=== PATIENT | female | born 1980 | race Caucasian/White ===

== ENCOUNTER 2020-08-15 12:37 | Emergency (ER) | payer OTHER, SELFPAY ==
[2020-08-15 12:37] VITALS: BP 165/106; PULSE 83; RESP 16; TEMP 36.4; O2SAT 100; BMI 22.1
--- NOTE | 2020-08-15 12:50 | CT_ITS ---
STUDY: CT ABDOMEN AND PELVIS WITH CONTRAST REASON FOR EXAM: Female, 40 years old. LLQ pain RADIATION DOSAGE (If Supplied By Facility): CTDIvol = ( 12.31 ) mGy, DLP = ( 569.20 ) mGycm TECHNIQUE: Transaxial images were obtained from the dome of the diaphragm to the symphysis pubis without oral contrast. IV 100mL Isovue-370 was administered. Sagittal and coronal images were reconstructed. Individualized dose optimization techniques were used for this CT. COMPARISON: None. FINDINGS: The visualized lung bases are unremarkable. The visualized portions of the heart are within normal limits. Normal liver. The gallbladder is contracted. Normal spleen. Normal pancreas. Normal bilateral adrenal glands. Normal right kidney. Normal left kidney. There is a small hiatal hernia. Normal small intestine. Normal colon. The appendix is visualized and appears normal. There is scattered atherosclerotic calcification of the abdominal aorta, without a demonstrated aneurysm. Normal inferior vena cava. There is borderline retroperitoneal lymphadenopathy with enlarged nodes no greater than 10mm in the short axis diameter. Normal urinary bladder. There is a 6.9 cm x 5.7 cm cystic mass in the left adnexa. There is also evidence of a 3 cm x 2.8 cm complex cystic mass in the right adnexa. Correlation with ultrasound is recommended. Normal abdominal wall. Levoscoliosis. CT/Abdomen/Pelvis W IV Cont ONLY IMPRESSION: Bilateral adnexal masses more prominent on the left side. Correlation with a pelvic ultrasound is recommended. Electronically Signed: Cody Barajas MD at 14:44 EDT , Service support ,
--- NOTE | 2020-08-15 12:56 | ED.VIS.GI ---
HPI HPI - GI History of Present Illness Chief Complaint: Abd Pain Informant: patient Narrative Narrative: Patient has left lower quadrant abdominal pain. She has had this for 5 weeks. She describes sharp pain in the left lower quadrant that does not radiate. The pain is not in her back. She denies nausea, vomiting or diarrhea. She has been taking ibuprofen which has been helping, but she states she has been taking it daily to help with the discomfort. She has no history of abdominal surgeries. She denies any dysuria or hematuria. She states she has had no irregular vaginal or heavy vaginal bleeding except for when the pain started 5 weeks ago she did have a lot of bleeding. PFSH PFSH Home Medications naproxen 500 mg PO BID PRN #20 tab 08/15/20 [Rx Last Taken Unknown] Allergy/AdvReac Type Severity Reaction Status Date / Time Penicillins [PCN] Allergy Severe NEEDS Verified 08/15/20 12:40 FOLLOW-UP Social History Smoking Status: Current every day smoker ROS ROS ED Constitutional Constitutional ED: Denies chills or fever(s) Eyes Eyes: Denies blurry vision, change in vision or diplopia ENT ENT ED: Denies ear pain, rhinorrhea or sore throat Cardiovascular Cardiovascular: Denies chest pain or palpitations Respiratory/Chest Respiratory/Chest: Denies cough, dyspnea or sputum Gastrointestinal Gastrointestinal: Reports abdominal pain Genitourinary Genitourinary ED: Denies dysuria, hematuria or urinary frequency Musculoskeletal Musculoskeletal: Denies back pain or neck pain Integumentary Denies change in pigmentation or rash Neurologic Neurologic: Denies headache(s), numbness or weakness Psychiatric Psychiatric: Denies anxiety or depression Endocrine Endocrinology: Denies polydipsia or polyuria EXAM Physical Exam Const Vital Signs: 08/15/20 12:37 08/15/20 13:13 08/15/20 15:26 Temperature 97.6 F L 97.6 F L Temperature Source Temporal Temporal Pulse Rate 83 83 103 H Respiratory Rate 16 16 Blood Pressure 165/106 H 165/106 H Blood Pressure Mean 125 125 Pulse Ox 100 100 98 Oxygen Delivery Method Room Air Room Air Room Air Positive well nourished and well developed General Appearance ED: well developed and NAD HEENT Reports moist mucous membranes normocephalic and atraumatic; Negative for tenderness Eyes PERRL and EOMs intact bilaterally Neck supple and no JVD Chest Wall Chest: Negative for tenderness Resp normal respiratory effort and clear to auscultation bilaterally Effort and Inspection: Negative for respiratory distress Cardio regular rate, regular rhythm and no murmurs Rate: regular rate Rhythm: regular rhythm GI soft to palpation and non-distended Palpation: soft and tender LLQ; Negative for guarding or rebound tenderness present Back/Spine no CVA tenderness and no thoracic nor lumbar tenderness Cervical Spine: Negative for cervical spine tenderness Extremity normal to inspection and full ROM General Extremety ED: Negative for tenderness Neuro oriented x3, CN's II-XII intact bilaterally and no sensory deficits noted Sensorium / Orientation: awake and alert Motor Exam: strength 5/5 throughout Psych mental status grossly normal Skin no rashes or lesions noted MDM MDM MDM Narrative Medical decision making narrative: Patient was given morphine and Zofran. Laboratory studies are fairly unremarkable except for an AST of 13. Urinalysis and test are negative. CAT scan of the abdomen pelvis shows bilateral adnexal masses. Radiologist recommended ultrasound follow-up. The ultrasound shows bilateral ovarian cysts with findings of an endometrioma versus hemorrhagic cyst. Recommended follow-up in about 6 weeks for this. 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 At this point feel she be discharged home with analgesia. Patient will be given Dr. Mela Fatima for follow-up. Lab Data Labs: Laboratory Results - last 24 hr 08/15/20 08/15/20 08/15/20 13:05 13:05 13:56 WBC 8.8 RBC 4.21 Hgb 13.2 Hct 39.9 MCV 94.8 MCH 31.4 MCHC 33.1 RDW Std Deviation 44.9 H RDW Coeff of Carlos 12.9 Plt Count 295 MPV 10.1 Immature Gran % (Auto) 0.300 Neut % (Auto) 59.6 Lymph % (Auto) 29.8 [place] % (Auto) 7.6 Eos % (Auto) 2.4 Baso % (Auto) 0.3 Absolute Neuts (auto) 5.2 Absolute Lymphs (auto) 2.62 Nucleated RBC % 0 Sodium 137 Potassium 3.7 Chloride 103 Carbon Dioxide 31.0 Anion Gap 3 L BUN 10 Creatinine 0.65 Estim Creat Clear Calc 121.44 Est GFR (MDRD) Af Amer 131 Est GFR (MDRD) Non-Af 108 BUN/Creatinine Ratio 15.5 Glucose 101 Calcium 8.6 Total Bilirubin 0.60 AST 13 L ALT 21 Alkaline Phosphatase 74 Total Protein 7.4 Albumin 3.7 Globulin 3.7 Albumin/Globulin Ratio 1.0 Urine Color Yellow Urine Clarity Clear Urine pH 7.0 Ur Specific [place]comb 1.015 Urine Protein Negative Urine Glucose (UA) Normal Urine Ketones Negative Urine Occult Blood Negative Urine Nitrite Negative Urine Bilirubin Negative Urine Urobilinogen Normal Ur Leukocyte Esterase Negative Urine RBC 0 SEEN Urine WBC 0 SEEN Ur Squamous Epith Cells 0-5 SEEN Urine Bacteria 2+ Urine Mucus 1+ Urine Test Negative Radiography Diagnostic Testing: Radiology Impression Abdomen/Pelvis CT 08/15/20 12:50 IMPRESSION: Bilateral adnexal masses more prominent on the left side. Correlation with a pelvic ultrasound is recommended. Electronically Signed: Cody Barajas MD at 14:44 EDT , Service support , Transvaginal US 08/15/20 14:49 IMPRESSION: Bilateral ovarian cystic lesions with sonographic findings of endometrioma versus hemorrhagic cyst. Recommend routine sonographic follow-up in 6-10 weeks. No evidence of torsion. at 1633 Reported and signed by: Babatunde Crandall MD Electronically Signed: Babatunde Crandall MD at 16:32 EDT Tel , Service support , Discharge Plan Triage Chief Complaint: Abd Pain ED Provider: Bertrand Hager Dx/Rx/DC Orders Clinical Impression: Bilateral ovarian cysts Instructions: ED Ovarian Cyst Prescriptions: New naproxen 500 MG tablet 500 mg PO BID PRN Qty: 20 RF: 0 Primary Care Provider: Care Physician,No Primary Referrals: Mela Fatima MD [STAFF PHYSICIAN] - Care Physician,No Primary [Primary Care Provider] - Disposition Disposition: Home, self care
[2020-08-15] MEDS: Ondansetron 4 MG/2 ML Vial IV (13:06)
[2020-08-15] MEDS: Morphine 4 MG/ML Syringe IV (13:06)
[2020-08-15 13:13] VITALS: BP 165/106; PULSE 83; RESP 16; TEMP 36.4; O2SAT 100
[2020-08-15 13:23] LABS: Absolute Lymphocyte Count 2.62 X10^3/uL (0.83-4.51); Absolute Neutrophil Count 5.2 X10^3/uL (2.0-7.7); Basophil# 0.03 X10^3/uL; Basophil% 0.3 % (0-1); Eosinophil# 0.21 X10^3/uL; Eosinophils% 2.4 % (0-5); Hematocrit 39.9 % (37-47); Hemoglobin 13.2 g/dL (12.0-15.0); Lymphocyte # 2.62 X10^3/ul (0.83-4.51); Lymphocyte % 29.8 % (19-41); Mean Corp Hgb Conc 33.1 g/dL (32-36); Mean Corpuscular Hgb 31.4 pg (27.0-32.0); Mean Corpuscular Volume 94.8 fL (81-99); Mean Platelet Vol. 10.1 fl (6.2-12.0); Monocyte# 0.67 X10^3/uL; Monocyte% 7.6 % (0-10); NRBC Flagged by Analyzer 0 % (0-5); Neutrophil # 5.22 X10^3/uL (2.7-7.7); Neutrophil % 59.6 % (47-70); Platelet Count 295 K/mm3 (150-450); RBC Distribution Width CV 12.9 % (11.6-14.6); RBC Distribution Width SD 44.9 fl (35.1-43.9); Red Blood Count 4.21 M/mm3 (4.2-5.4); White Blood Count 8.8 K/mm3 (4.4-11.0)
[2020-08-15 13:40] LABS: AST(SGOT) 13 U/L (15-37); Alanine Aminotransfer ALT/SGPT 21 U/L (13-56); Albumin, Serum 3.7 g/dL (3.2-5.0); Alkaline Phosphatase 74 U/L (45-117); Anion Gap 3 (5-15); BUN 10 mg/dL (7-18); BUN/Creat Ratio 15.5 RATIO (10-20); Calcium,Total 8.6 mg/dL (8.5-10.1); Chloride 103 mmol/L (98-107); Creatinine, Serum 0.65 mg/dL (0.55-1.02); EST Glomerular Filtration Rate 108 mL/min (>60); Est Glom Filt Rate - Afr Amer 131 mL/min (>60); Estimated Creatinine Clearance 121.44 ml/min; Globulin 3.7 g/dL (2.2-4.2); Glucose 101 mg/dL (74-106); Potassium 3.7 mmol/L (3.5-5.1); Protein, Total 7.4 g/dL (6.4-8.2); Sodium Level 137 mmol/L (136-145)
[2020-08-15 14:03] LABS: Red Blood Cells-Urine 0 SEEN /hpf (0-5); White Blood Cells 0 SEEN /hpf (0-5)
[2020-08-15 14:05] LABS: Color, Urine Yellow (Yellow); Glucose, Dipstick Normal (Normal); Ketone-Dipstick Negative (Negative); Leukocyte Esterase-Dipstick Negative /ul (Negative); Nitrite-Dipstick Negative (Negative); Occult Blood-Urine Negative /ul (Negative); Protein-Dipstick Negative (Negative); Specific Gravity, Urine 1.015 (1.002-1.030); Urine Bilirubin Dipstick Negative (Negative); Urine Clarity Clear (Clear); Urine Urobilinogen Normal (Normal)
[2020-08-15 14:09] LABS: Internal QC Validated? YES +Cl - CLEAR BKGD; Pregnancy, Urine Negative Negative
[2020-08-15 14:12] LABS: Bacteria 2+ /hpf (None Seen); Mucous, Urine 1+ /hpf (<or=2+); Squamous Epithelial Cells - UA 0-5 SEEN /hpf (5-10)
--- NOTE | 2020-08-15 14:49 | US_ITS ---
HISTORY: pelvic masses EXAMINATION: US Transvaginal Non-OB TECHNIQUE: Transabdominal and transvaginal (for optimal evaluation of the adnexa) pelvic ultrasound was performed. Grayscale, spectral waveform, and color flow Doppler evaluation of the adnexa. COMPARISON: CT abdomen and pelvis 08/15/20 FINDINGS: UTERUS: anteverted. The uterus measures 8.1 x 5.6 x 3.8 cm. There is no uterine mass. The endometrial stripe measures 9 mm in AP diameter which is within normal limits. RIGHT OVARY: 3.8 x 3.1 x 2.9 cm. Cystic lesion with hypoechoic reticular internal echoes measuring up to 2.2 cm. There is normal arterial inflow and venous outflow present in the right ovary. LEFT OVARY: 6.0 x 6.0 x 5.8 cm. Cystic lesion with hypoechoic reticular internal echoes measuring up to 5.3 cm. There is normal arterial inflow and venous outflow present in the left ovary. FREE FLUID: None. US/Transvaginal Non- IMPRESSION: Bilateral ovarian cystic lesions with sonographic findings of endometrioma versus hemorrhagic cyst. Recommend routine sonographic follow-up in 6-10 weeks. No evidence of torsion. at 1633 Reported and signed by: Babatunde Crandall MD Electronically Signed: Babatunde Crandall MD at 16:32 EDT Tel , Service support ,
[2020-08-15 15:26] VITALS: PULSE 103; O2SAT 98
== END 2020-08-15 16:49 | disposition home or self-care (01) ==
PROVIDERS: Emergency Provider Emergency Medicine
DX: N83.201 Unspecified ovarian cyst, right side (principal); N83.202 Unspecified ovarian cyst, left side; F17.200 Nicotine dependence, unspecified, uncomplicated
CPT/HCPCS: 74177; 76830; 80053; 81001; 81025; 85025; 96374; 96375; 99283; Q9967; A4216; J2405